=== PATIENT | female | born 1980 | race Caucasian/White ===

== ENCOUNTER → 2023-08-06 10:50 | Outpatient (REF) | payer OTHER, SELFPAY | LOC: HWRAD 10:50 | PROVIDERS: ATTENDING PHYSICIAN Family Medicine | DX: R10.11 Right upper quadrant pain (principal) | CPT/HCPCS: 76700 ==

== ENCOUNTER → 2023-10-14 09:43 | Outpatient (REF) | payer OTHER, SELFPAY | LOC: WDC 09:43 | PROVIDERS: ATTENDING PHYSICIAN Nurse Practitioner Obstetrics & Gynecology; FAMILY PHYSICIAN Family Medicine | DX: R92.2 Inconclusive mammogram (principal) | CPT/HCPCS: 76641 ==

== ENCOUNTER 2025-02-19 17:32 | Emergency (ER) | payer OTHER, SELFPAY ==
[2025-02-19 17:38] VITALS: BP 143/92
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
[2025-02-19 21:36] VITALS: BP 137/80
== END 2025-02-19 22:42 | disposition home or self-care (01) ==
LOC: EMR 17:32
PROVIDERS: EMERGENCY PHYSICIAN Emergency Medicine; FAMILY PHYSICIAN Family Medicine
DX: S80.12XA Contusion of left lower leg, initial encounter (principal); V86.59XA Driver of other special all-terrain or other off-road motor vehicle injured in nontraffic accident, initial encounter; Z86.711 Personal history of pulmonary embolism
CPT/HCPCS: 99284; 93971

== ENCOUNTER → 2025-04-03 13:33 | Outpatient (REF) | payer OTHER, SELFPAY | LOC: WDC 13:33 | PROVIDERS: ATTENDING PHYSICIAN Nurse Practitioner Obstetrics & Gynecology | DX: Z12.31 Encounter for screening mammogram for malignant neoplasm of breast (principal) | CPT/HCPCS: 77063; 77067 ==

== ENCOUNTER 2025-04-03 16:34 | Emergency (ER) | payer OTHER, SELFPAY ==
[2025-04-03 16:36] VITALS: BP 151/88
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
== END 2025-04-03 18:54 | disposition home or self-care (01) ==
LOC: EMR 16:34
PROVIDERS: EMERGENCY PHYSICIAN Emergency Medicine
DX: M79.662 Pain in left lower leg (principal); F41.9 Anxiety disorder, unspecified; F32.A Depression, unspecified; Z86.711 Personal history of pulmonary embolism
CPT/HCPCS: 99284; 93971